=== PATIENT | female | born 1980 | race Caucasian/White ===

== ENCOUNTER 2023-11-19 14:10 | Emergency (ER) | payer MEDICAID ==
[~2023-11-19] VITALS: Ht 165.1 cm; Wt 60.0 kg
[2023-11-19 14:12] VITALS: O2SAT 100
[2023-11-19] MEDS: LORAZEPAM 2MG/ML INJ IV ONE (14:56)
[2023-11-19] MEDS: LORAZEPAM 2MG/ML INJ IM ONE (15:53)
[2023-11-20 06:30] VITALS: BP 113/76; PULSE 62; RESP 16; TEMP 98.1
== END 2023-11-20 06:50 | disposition home or self-care (01) ==
LOC: ER 14:46
DX: T65.91XA Toxic effect of unspecified substance, accidental (unintentional), initial encounter (principal); X58.XXXA Exposure to other specified factors, initial encounter
CPT/HCPCS: 96372; 96374; 99291; J2060; Z7610 ×2